=== PATIENT | female | born 1955 | race Caucasian/White ===

== ENCOUNTER 2020-06-29 13:46 | Emergency (ER) | payer MEDICARE, OTHER ==
[2020-06-29 14:07] VITALS: PULSE 83; O2SAT 100
[2020-06-29] MEDS ORDERED: Zofran 4 MG/2 ML VIAL IM ONE (14:27)
[2020-06-29] MEDS ORDERED: Zofran 4 MG/2 ML VIAL IV ONE (14:30)
[2020-06-29] MEDS ORDERED: Zofran 4 MG/2 ML VIAL ONE (14:31)
--- NOTE | 2020-06-29 14:31 | ERPHSYRPT ---
- History of Present Illness Time Seen by Provider: 06/29/20 14:29 Historian: patient Exam Limitations: no limitations Patient Subjective Stated Complaint: Abdominal pain Triage Nursing Assessment: Patient ambulated back to ED and transferred self to bed. Patient A+O X3. Patient's skin pink, warm and dry. Patient complains of abdominal pain that is intermittent sharp pain since yesterday evening. Patient states she would attempt to have a bowel movement and not be able to . Patient complains of nausea as well. Abdomen soft and round with BS X 4. Physician History: Is a 64-year-old female with significant past medical history of gastric ulcer, recently patient went for blood donation and where she was told that she is anemic. She started iron pills and since then she has been having a constipation problem. She took a suppository yesterday and she did have a good bowel movement today morning. She is seeing Dr. Beatty community education specialist for her ulcer problems. Patient is denying any fever chills diarrhea. Patient is complaining of mild nausea. Timing/Duration: today Abdominal Pain Onset Location: generalized abdomen Pain Radiation: no radiation Severity of Pain-Max: mild Severity of Pain-Current: mild Modifying Factors: Improves With: nothing Associated Symptoms: nausea Previous symptoms: no prior history Allergies/Adverse Reactions: No Known Drug Allergies Allergy (Unverified 06/29/20 14:00) Hx Influenza Vaccination/Date Given: Yes Hx Pneumococcal Vaccination/Date Given: No Immunizations Up to Date: Yes Travel Risk - International Travel Have you traveled outside of the country in past 3 weeks: No - Coronavirus Screening Are you exhibiting any of the following symptoms?: No Close contact with a COVID-19 positive Pt in past 14-21 Days: No - Review of Systems Constitutional: No Fever, No Chills Eyes: No Symptoms Ears, Nose, & Throat: No Symptoms Respiratory: No Cough, No Dyspnea Cardiac: No Chest Pain, No Edema, No Syncope Abdominal/Gastrointestinal: Abdominal Pain, Nausea, No Vomiting, No Diarrhea Genitourinary Symptoms: No Dysuria Musculoskeletal: No Back Pain, No Neck Pain Skin: No Rash Neurological: No Dizziness, No Focal Weakness, No Sensory Changes Psychological: No Symptoms Endocrine: No Symptoms All Other Systems: Reviewed and Negative - Past Medical History Neurological History: No Pertinent History ENT History: No Pertinent History Cardiac History: No Pertinent History Respiratory History: No Pertinent History Endocrine Medical History: No Pertinent History Musculoskeletal History: No Pertinent History, Fibromyalgia GI Medical History: Ulcer History: No Pertinent History Female Reproductive Disorders: No Pertinent History - Past Surgical History Past Surgical History: Yes Neuro Surgical History: No Pertinent History Cardiac: No Pertinent History Respiratory: No Pertinent History Gastrointestinal: No Pertinent History Genitourinary: No Pertinent History Musculoskeletal: Orthopedic Surgery Female Surgical History: Other Other Surgical History: breast reduction, foot surgery - Social History Smoking Status: Never smoker Exposure to second hand smoke: No Drug Use: marijuana Patient Lives Alone: Yes - Female History Hx Now: No - Nursing Vital Signs Nursing Vital Signs: Initial Vital Signs Temperature 98.6 F 06/29/20 14:01 Pulse Rate 83 06/29/20 14:01 Respiratory Rate 18 06/29/20 14:01 Blood Pressure 141/100 06/29/20 14:01 O2 Sat by Pulse Oximetry 100 06/29/20 14:01 Pain Scale Pain Intensity 5 - Physical Exam General Appearance: no apparent distress, alert Eye Exam: PERRL/EOMI, eyes nml inspection Ears, Nose, Throat Exam: normal ENT inspection, pharynx normal, moist mucous membranes Neck Exam: normal inspection, non-tender, supple, full range of motion Respiratory Exam: normal breath sounds, lungs clear, No respiratory distress Cardiovascular Exam: regular rate/rhythm, normal heart sounds Gastrointestinal/Abdomen Exam: soft, No tenderness, No mass Back Exam: normal inspection, normal range of motion, No CVA tenderness, No vertebral tenderness Extremity Exam: normal inspection, normal range of motion, pelvis stable Neurologic Exam: alert, oriented x 3, cooperative, normal mood/affect, nml cerebellar function, sensation nml, No motor deficits Skin Exam: normal color, warm, dry SpO2: 100 - Course Nursing assessment & vital signs reviewed: Yes - Radiology Exams Abdomen X-ray Interpretation: Reviewed by me (constipated bowel) Ordered Tests: Active Orders 24 hr Category Date Time Status IV Insertion STAT Care 06/29/20 14:29 Active OBSTR/ACUTE ABDOMEN SERIES Stat Exams 06/29/20 14:28 Taken AMYLASE Stat Lab 06/29/20 14:34 Completed CBC W DIFF Stat Lab 06/29/20 14:34 Completed CMP Stat Lab 06/29/20 14:34 Completed LIPASE Stat Lab 06/29/20 14:34 Completed UA W/RFX UR CULTURE Stat Lab 06/29/20 14:28 Ordered Medication Summary Generic Name Dose Route Start Last Admin Trade Name Kevan PRN Reason Stop Dose Admin Ciprofloxacin 500 mg 06/29/20 15:27 Cipro 500 Mg PO 06/29/20 15:28 ONCE ONE Discontinued Medications Generic Name Dose Route Start Last Admin Trade Name Kevan PRN Reason Stop Dose Admin Ondansetron HCl 4 mg 06/29/20 14:27 06/29/20 14:30 Zofran 4 Mg/2 Ml Vial IM 06/29/20 14:28 Not Given STAT ONE Ondansetron HCl 4 mg 06/29/20 14:30 06/29/20 14:32 Zofran 4 Mg/2 Ml Vial IV 06/29/20 14:31 4 mg STAT ONE Administration Ondansetron HCl Confirm 06/29/20 14:31 Zofran 4 Mg/2 Ml Vial Administered 06/29/20 14:32 Dose 4 mg .ROUTE .STK-MED ONE Lab/Rad Data: Laboratory Result Diagrams 06/29/20 14:34 06/29/20 14:34 Laboratory Results 06/29/20 06/29/20 Range/Units 14:34 14:34 WBC 14.6 H (4.0-10.5) K/mm3 RBC 3.77 L (4.1-5.4) M/mm3 Hgb 11.6 L (12.0-16.0) gm/dl Hct 36.4 (35-47) % MCV 96.6 (78-100) fl MCH 30.8 (26-32) pg MCHC 31.9 L (32-36) g/dl RDW 19.0 H (11.5-14.0) % Plt Count 425 (150-450) K/mm3 MPV 10.6 (7.5-11.0) fl Gran % 86.5 H (36.0-66.0) % Eos # (Auto) 0.05 (0-0.5) Absolute Lymphs (auto) 0.99 L (1.0-4.6) Absolute Monos (auto) 0.91 (0.0-1.3) Lymphocytes % 6.8 L (24.0-44.0) % Monocytes % 6.3 (0.0-12.0) % Eosinophils % 0.3 (0.00-5.0) % Basophils % 0.1 (0.0-0.4) % Absolute Granulocytes 12.59 H (1.4-6.9) Basophils # 0.02 (0-0.4) Sodium 135 L (137-145) mmol/L Potassium 4.6 (3.5-5.1) mmol/L Chloride 103 (98-107) mmol/L Carbon Dioxide 21 L (22-30) mmol/L Anion Gap 15.6 H (5-15) MEQ/L BUN 40 H (7-17) mg/dL Creatinine 1.84 H (0.52-1.04) mg/dL Estimated GFR 29.3 ML/MIN Glucose 121 H (74-106) mg/dL Calcium 10.0 (8.4-10.2) mg/dL Total Bilirubin 0.70 (0.2-1.3) mg/dL AST 32 (14-36) U/L ALT 17 (0-35) U/L Alkaline Phosphatase 96 (38-126) U/L Serum Total Protein 7.6 (6.3-8.2) g/dL Albumin 4.3 (3.5-5.0) g/dL Amylase 92 (30-110) U/L Lipase 31 (23-300) U/L - Progress Progress: improved Counseled pt/family regarding: lab results, diagnosis, need for follow-up, rad results - Departure Departure Disposition: Home Clinical Impression: Dehydration Constipation Qualifiers: Constipation type: slow transit constipation Qualified Code(s): K59.01 - Slow transit constipation Condition: Stable Critical Care Time: No Referrals: JOHN SHARMA [Primary Care Provider] - Instructions: Constipation, Adult (DC) Prescriptions: Ciprofloxacin [Cipro 500 MG] 500 mg PO BIDAC #14 tablet
[2020-06-29 14:39] LABS: Absolute Neutrophil Ct (ANC) 12.59 (1.4-6.9); BASOPHIL % 0.1 % (0.0-0.4); Basophil (Absolute #) 0.02 (0-0.4); Eosinophil % 0.3 % (0.00-5.0); Eosinophil (Absolute #) 0.05 (0-0.5); Hematocrit 36.4 % (35-47); Hemoglobin 11.6 gm/dl (12.0-16.0); Lymphocyte (Absolute #) 0.99 (1.0-4.6); Lymphocytes % 6.8 % (24.0-44.0); Mean Cell Volume 96.6 fl (78-100); Mean Corpuscular Hemoglobin 30.8 pg (26-32); Mean Corpuscular Hgb Concent. 31.9 g/dl (32-36); Mean Platelet Volume 10.6 fl (7.5-11.0); Monocyte (Absolute #) 0.91 (0.0-1.3); Monocytes % 6.3 % (0.0-12.0); Neutrophil % 86.5 % (36.0-66.0); Platelet Count 425 K/mm3 (150-450); Red Blood Count 3.77 M/mm3 (4.1-5.4); White Blood Count 14.6 K/mm3 (4.0-10.5)
[2020-06-29 14:43] LABS: ALBUMIN 4.3 g/dL (3.5-5.0); ANION GAP 15.6 MEQ/L (5-15); BILIRUBIN,TOTAL 0.7 mg/dL (0.2-1.3); Creatinine 1 1.84 mg/dL (0.52-1.04); EST GLOMERULAR FILTRATION RATE 29.3 ML/MIN; Potassium 4.6 mmol/L (3.5-5.1); Total Protein 7.6 g/dL (6.3-8.2)
[2020-06-29] MEDS ORDERED: Cipro 500 MG PO ONE (15:27)
[2020-06-29] MEDS ORDERED: Cipro 500 MG ONE (15:34)
[2020-06-29 15:36] VITALS: BP 145/100
--- NOTE | 2020-06-29 19:36 | XRAY ---
Indication: Abdomen pain and constipation. Comparison: None 2 view abdomen nonacute and nonobstructed. Solid organs and osseous structures are unremarkable. Single PA chest demonstrates minimal left base subsegmental atelectasis/scarring and incidental bibasilar calcified granulomas. Remaining heart and lungs unremarkable. Bony thorax intact with minimal dextroscoliosis centered at T11. Impression: Nonacute nonobstructed abdomen. Nonacute one view chest with chronic features.
== END 2020-06-29 15:42 | disposition home or self-care (01) ==
LOC: ED 13:46
DX: E86.0 Dehydration (principal); K59.01 Slow transit constipation
CPT/HCPCS: 36000; 36415; 74022; 80053; 82150; 83690; 85025; 96374; 99284; J2405; A9270-GY